=== PATIENT | male | born 1965 | race Caucasian/White ===

== ENCOUNTER 2021-01-17 08:54 | Inpatient (IN) ==
--- NOTE | 2021-01-02 12:26 | Anesthesiology Consultation ---
Date of Service January 02, 2021 Assessment & Plan (1) Encounter for pre-operative examination: Chart Review Chart Review: Acceptable Risk for Surgery (pending preop Covid testing results ) and Patient NOT seen in Pre Admission Testing Per nursing assessment 12/21/2020, patient resides and works in [facility]. Did travel to [place]- stayed at son's house overnight- did not go in public. Returned 12/18/20. Wears mask, uses good hand hygiene and socially distances. No known Covid positive contacts or Covid related symptoms. No known Covid infection in the past 90 days. Spoke to patient- preop Covid testing scheduled 01/12/21= will await results. History Surgery Operation Date: 01/17/21 07:45 Proposed Procedures p Right Total Knee Arthroplasty - Pro Marquez DO Height/Weight Height: 5 ft 8 in Weight: 133.356 kg Allergies Allergy/AdvReac Type Severity Reaction Status Date / Time No Known Allergies Allergy Unknown Verified 12/21/20 07:55 Medications Home Medications Medication Instructions Recorded Confirmed Last Taken Glucosamine Chondroitin 2 cap PO QAM 04/07/19 12/21/20 04/14/19 08:00 Juice Plus 4 cap PO QAM 04/07/19 12/21/20 04/14/19 08:00 aspirin 81 mg PO QAM 04/07/19 12/21/20 04/08/19 08:00 cholecalciferol (vitamin D3) 1,000 unit PO QAM 04/07/19 12/21/20 04/14/19 08:00 [Vitamin D3] fluticasone propionate [Flonase 2 spray INTRANASAL DAILY PRN 04/07/19 12/21/20 Unknown Allergy Relief] lisinopril 10 mg PO QAM 04/07/19 12/21/20 04/14/19 08:00 multivitamin 1 tab PO QAM 04/07/19 12/21/20 04/14/19 08:00 omeprazole 20 mg PO QAM 04/07/19 12/21/20 04/14/19 08:00 rosuvastatin 5 mg PO Q OTHER DAY 04/07/19 12/21/20 04/13/19 08:00 sertraline 100 mg PO QAM 04/07/19 12/21/20 04/14/19 08:00 tramadol 50 mg PO Q8 PRN 04/07/19 12/21/20 Unknown ibuprofen 800 mg PO Q6H PRN 12/21/20 12/21/20 Unknown meloxicam 15 mg PO QAM 12/21/20 12/21/20 Unknown Past Medical History Medical History Anxiety Degenerative disc disease Depression GERD (gastroesophageal reflux disease) History of COVID-19 DX'D 06/24/2020 [facility] BELLEFONTE-TIRED, ACHY, DECREASED TASTE AND SMELL- RECOVERED AT HOME-ALL RESOLVED EXCEPT SMELL STILL DIMINISHED AT PRESENT Hyperlipidemia Hypertension Kidney stones Migraine HX Osteoarthritis Sleep apnea CAN'T TOLERATE CPAP Past Family History Family History Aunt Family history of diabetes mellitus Uncle Family history of diabetes mellitus Grandfather (Maternal) Family history of diabetes mellitus Grandfather (Paternal) Family history of diabetes mellitus Grandmother (Paternal) Family history of diabetes mellitus Grandmother (Maternal) Family history of diabetes mellitus Other No family history of adverse response to anesthesia Past Surgical History Surgical History History of arthroscopy of right knee History of colonoscopy History of cystoscopy History of hand surgery RIGHT-GLASS REMOVAL History of hand surgery LEFT-CYST REMOVAL History of tonsillectomy and adenoidectomy History of tooth extraction Social History Smoking Status: Former smoker Do You Dip or Chew Tobacco: No Smoking End Date: QUIT CIGARS 1.5 YRS AGO Hx Alcohol Use: Yes Alcohol type: beer and hard liquor alcohol intake frequency: a few times a week Hx Substance Use: Yes substance use type: prescription drug Lab Results Anesthesia Preop Results Results Anesthesia Widget: WBC 6.90 K/uL (4.8-10.8) 12/23/20 Hgb 15.1 g/dL (14.0-18.0) 12/23/20 Hct 44.3 % (42-52) 12/23/20 Plt 234 K/uL (130-400) 12/23/20 Na 144 mmol/L (136-145) 12/23/20 K 4.0 mmol/L (3.5-5.1) 12/23/20 Cl 109 mmol/L (98-107) H 12/23/20 CO2 30 mmol/L (21-32) 12/23/20 BUN 18 mg/dl (7-18) 12/23/20 Creat 0.83 mg/dl (0.6-1.4) 12/23/20 Glucose Level 82 mg/dl (70-99) 12/23/20 PT 9.6 Seconds (9.0-12.0) 12/23/20 PTT 23.6 Seconds (21.0-31.0) 12/23/20 INR 0.9 (0.9-1.1) 12/23/20 HA1c 5.6 % (4.5-5.6) 12/23/20 Urine Color Dark Yellow 12/23/20 Urine Appearance Clear (Clear) 12/23/20 Urine pH 5.5 (4.5-7.5) 12/23/20 Urine Specific [place] 1.023 (1.000-1.030) 12/23/20 Urine Protein Negative (Negative) 12/23/20 Urine Glucose (UA) Negative (Negative) 12/23/20 Urine Ketones Negative (Negative) 12/23/20 Urine Blood Negative (Negative) 12/23/20 Urine Nitrite Negative (Negative) 12/23/20 Urine Bilirubin Negative (Negative) 12/23/20 Urine Urobilinogen Negative (Negative) 12/23/20 Urine Leukocyte Esterase Negative (Negative) 12/23/20 Testing Electrocardiogram Date: 12/23/20 NSR with sinus arrhythmia at 74bpm. Chest X-Ray Date: 12/23/20 Findings: + NAD
--- NOTE | 2021-01-15 08:52 | History & Physical Report ---
Date of Service January 17, 2021 Assessment & Plan (1) Degenerative joint disease of knee, right: I have indicated the patient for right total knee replacement. The risks, benefits and complications of surgery were explained to the patient which include but not limited to infection, acute blood loss, DVT/PE, injury to nerves, vessels, bone, soft tissue, arthrofibrosis, chronic pain, failure of the prosthesis, knee dislocation, leg length discrepancy, need for additional surgery, cardiac and pulmonary events and . The patient wished to proceed with surgery and informed consent was obtained at this time. We will plan for ASA BID post-operatively for DVT prophylaxis. Upon discharge the patient will be discharged home with home health services. Appropriate clearances by PCP were obtained. History of Present Illness Chief Complaint: Right knee pain/DJD Primary Care Provider: James Sahrp DO The patient is a 55 year old male who presents with complaints of severe right knee pain and DJD. The patient has failed outpatient conservative treatments to this point which included NSAIDs, IA corticosteroid, CEBALLOS injections, HEP. The patient's pain and limited function have progressed to the point where they severely hinder their activities of daily living and they no longer tolerate exercise programs. They are requesting to proceed with total knee replacement surgery. Allergies Allergy/AdvReac Type Severity Reaction Status Date / Time No Known Allergies Allergy Unknown Verified 01/17/21 09:17 Home Medications Medication Instructions Recorded Confirmed Type Glucosamine Chondroitin 2 cap PO QAM 04/07/19 01/17/21 History Juice Plus 4 cap PO QAM 04/07/19 01/17/21 History aspirin 81 mg PO QAM 04/07/19 01/17/21 History cholecalciferol (vitamin D3) 1,000 unit PO QAM 04/07/19 01/17/21 History [Vitamin D3] fluticasone propionate [Flonase 2 spray INTRANASAL DAILY PRN 04/07/19 01/17/21 History Allergy Relief] lisinopril 10 mg PO QAM 04/07/19 01/17/21 History multivitamin 1 tab PO QAM 04/07/19 01/17/21 History omeprazole 20 mg PO QAM 04/07/19 01/17/21 History rosuvastatin 5 mg PO DAILY 04/07/19 01/17/21 History sertraline 100 mg PO QAM 04/07/19 01/17/21 History tramadol 50 mg PO Q8 PRN 04/07/19 01/17/21 History ibuprofen 800 mg PO Q6H PRN 12/21/20 01/17/21 History meloxicam 15 mg PO QAM 12/21/20 01/17/21 History Past Med/Surg History Medical History Anxiety Degenerative disc disease Depression GERD (gastroesophageal reflux disease) History of COVID-19 DX'D 06/24/2020 [facility] BELLEFONTE-TIRED, ACHY, DECREASED TASTE AND SMELL- RECOVERED AT HOME-ALL RESOLVED EXCEPT SMELL STILL DIMINISHED AT PRESENT Hyperlipidemia Hypertension Kidney stones Migraine HX Osteoarthritis Sleep apnea CAN'T TOLERATE CPAP Surgical History History of arthroscopy of right knee History of colonoscopy History of cystoscopy History of hand surgery RIGHT-GLASS REMOVAL History of hand surgery LEFT-CYST REMOVAL History of tonsillectomy and adenoidectomy History of tooth extraction Family History Aunt Family history of diabetes mellitus Uncle Family history of diabetes mellitus Grandfather (Maternal) Family history of diabetes mellitus Grandfather (Paternal) Family history of diabetes mellitus Grandmother (Paternal) Family history of diabetes mellitus Grandmother (Maternal) Family history of diabetes mellitus Other No family history of adverse response to anesthesia Social History Smoking Status: Former smoker Smoking End Date: QUIT CIGARS 1.5 YRS AGO; Second Hand Exposure: Yes (FATHER SMOKED); Do You Dip or Chew Tobacco: No; Hx Alcohol Use: Yes Alcohol type: beer and hard liquor Hx Substance Use: Yes Preferred Language: Bahamian Communication Ability: Effective Physician Assistant Primary Care Required: No Beliefs That Will Affect Care: None Current Living Situation: Spouse current occupational status: employed current occupation: [employer] Other Information That Helps Us Care for You: No Feels Safe at Home: Yes Safety Concerns: Feels Safe At This Time Assistive Devices: Denture - Upper and Glasses Assistive Devices Comment: PARTIAL UPPER Review of Systems Review of Systems: All systems reviewed & are unremarkable except as noted in HPI & below Constitutional: as per Subjective / HPI Physical Exam Physical Exam: RLE NVSI +EHL/FHL/TA/GS SILT grossly, +2 DP pulse, compartments soft NT, limited painful ROM, 0-115 degrees of flexion, +crepitus Constitutional: WD/WN, vitals as above Eyes: PERRL, conjunctivae normal, anicteric sclerae ENMT: external ear and nose normal, oropharynx normal Neck: trachea midline, no thyromegaly Respiratory: normal respiratory effort, lungs clear to auscultation Cardiovascular: RRR, no murmur, no edema Gastrointestinal (Abdomen): normal bowel sounds, soft, nontender, no hepatosplenomegaly Musculoskeletal: no cyanosis or clubbing, extremities motor strength 5/5 Skin: no rashes, warm and dry Neurologic: patellar DTR's 2+ bilat, sensation intact Psychiatric: A+Ox3, euthymic affect Lymphatic: no cervical or axillary lymphadenopathy Results & Data Results & Data ([facility]) Diagnostic Findings Multiple views of the knee demonstrates severe tricompartmental DJD with complete loss of the medial joint space. +osteophytes, +sclerosis, +subchondral cysts.
[~2021-01-17 08:54] MED LIST: ACETAMINOPHEN 500 MG TAB PO SCH; BUPIVACAINE 0.25% 30 ML VIAL ONE; BUPIVACAINE 0.5 % 5 MG/1 ML PF 10ML VIAL ONE; CeleBREX 200 MG CAP PO SCH; FAMOTIDINE 20 MG TAB PO SCH; GABAPENTIN 600 MG DOSE PO SCH; LR 500ML BOLUS, THEN 15ML/HR IV SCH; METOCLOPRAMIDE HCL 10 MG TABLET PO SCH; ROPIVACAINE 0.5% HCL/PF 150 MG, BUPIVACAINE 0.75% MPF 20 ML, EPINEPHrine 30MG/30ML (OR ... INSTIL SCH; Scopolamine 1 MG TDSY TD SCH; TRANEXAMIC ACID 1,000 MG **IV Intra-op IV SCH; TRANEXAMIC ACID 1,000 MG **IV Pre-op IV SCH; dexAMETHasone 4 MG TAB PO SCH
[2021-01-17] MEDS ORDERED: fentaNYL citrate 100 MCG/2 ML VIAL IV PRN (10:52)
[2021-01-17] MEDS ORDERED: ONDANSETRON INJ 2 MG/ML 2 ML VIAL IV PRN ×2 (10:52→15:37)
[2021-01-17] MEDS ORDERED: ePHEDrine sulfate 50 MG/ML AMP IV PRN (10:52)
[2021-01-17] MEDS ORDERED: ATROPINE SULFATE 0.1 MG/ML 10ML SYR IV PRN (10:52)
[2021-01-17] MEDS ORDERED: MIDAZOLAM HCL 1 MG/ML 2ML VIAL ONE (10:55)
--- NOTE | 2021-01-17 11:53 | History & Physical Bridge Note ---
Date of Service January 17, 2021 History & Physical Bridge Note I have examined the patient, reviewed the History & Physical and in the interval since the performance of the History & Physical I have noted the following changes of clinical significance: no changes noted
[2021-01-17] MEDS ORDERED: ORTHO JOINT ANESTHETIC ONE (12:08)
[2021-01-17] MEDS ORDERED: KETAMINE 50 MG/5 ML SYRINGE ONE (12:50)
[2021-01-17] MEDS ORDERED: LIDOCAINE 2% 2 ML VIAL/AMP(20MG/ML) INFIL ONE (13:14)
[2021-01-17] MEDS ORDERED: ONDANSETRON INJ 2 MG/ML 2 ML VIAL ONE (13:14)
[2021-01-17] MEDS ORDERED: PROPOFOL IV EMULSION 10 MG/ML 20 ML VIAL IV ONE (13:14)
--- NOTE | 2021-01-17 14:18 | Post Operative Brief Note ---
Immediate Post Op Note v1 Date of Surgery January 17, 2021 Pre & Post Diagnosis Operation Date: 01/17/21 11:35 Pre-Op Diagnosis: Right Knee Degenerative Joint Disease Post-Op Diagnosis: Right Knee Degenerative Joint Disease I identified the patient and participated in the time-out.: Yes Procedure Operation Date: 01/17/21 11:35 Actual Procedures p Right Total Knee Arthroplasty(Right) - Pro Marquez DO Surgeon Pro Marquez DO [employer] Phong Raphael Estimated Blood Loss 75 Findings Consistent with Post-Op Diagnosis Fluids See anesthesia report Specimens Proximal tibia and distal femur bone fragment Anesthesia Type Spinal MAC Complications none Disposition Disposition: Recovery Room Overlapping Procedure I was present for: the critical portions of procedure. I was immediately available: during the entire case. Back up surgeon: was not required during procedure.
--- NOTE | 2021-01-17 14:20 | Operative Report ---
Post Operative Report Pre & Post Diagnosis Operation Date: 01/17/21 11:35 Pre-Op Diagnosis: Right Knee Degenerative Joint Disease Post-Op Diagnosis: Right Knee Degenerative Joint Disease I identified the patient and participated in the time-out.: Yes Procedure Operation Date: 01/17/21 11:35 Actual Procedures p Right Total Knee Arthroplasty(Right) - Pro Marquez DO Surgeon Pro Marquez, Top Ironer Phong Raphael Estimated Blood Loss 75 Findings Consistent with Post-Op Diagnosis Fluids See anesthesia report Specimens Proximal tibia and distal femur bone fragment Anesthesia Type Spinal MAC Complications none Disposition Disposition: Recovery Room Indications The patient is a 55-year-old male presents with long history of severe right knee tricompartmental DJD and failed outpatient conservative treatments including NSAIDs, bracing, injections and home walking/exercise program. The patient's symptoms have progressed to the point where it has been difficult to p erform normal activities of daily living. I have indicated the patient for a right total knee arthroplasty, the risks and benefits and complications of the procedure include but are not limited to infection bleeding damage to bone, nerves, vessels, surrounding soft tissue, blood clots, loss of function, leg length discrepancy, dislocation, failure of the components, need for additional surgery and . The patient wished to proceed with surgery at this time and informed consent was obtained. Appropriate clearances were obtained. Description of Procedure COMPONENTS USED: Maricruz persona knee system: Femur size 9 standard, Tibia size H, 30mm tibial stem extension, Tibial articulating surface 12 PS, Patella 35 mm Following induction of spinal anesthesia, a tourniquet was applied to the proximal aspect of the thigh and the patient's right leg was prepped and draped in the usual sterile manner. A timeout was performed, patient identified and site frank confirmed. Appropriate pre-operative IV antibiotics were given. The limb was exsanguinated with an Esmarch bandage and tourniquet was inflated to 300 mmHg. A longitudinal midline incision was made over the anterior knee. Subcutaneous tissue was sharply dissected down to fascia. Electrocautery was used for hemostasis. Next a parapatellar arthrotomy was performed. Patella was everted and the knee was flexed. A Dudley retractor was used to expose the synovium above on the anterior aspect of the femur and removed down to bone. Next, the anterior fat pad was removed to aid in visualization. The medial face of the tibia was cleared of soft tissue first with a Bovie and a montesinos elevator. This tissue was retracted posteriorly using a blunt Hohmann. Next, the extra-medullary tibial cutting guide was placed to the anterior aspect of the tibia. The tibia resection level was set taking 2mm from the defective tibial condyle. Resection depth was once again confirmed with atilio wing. The medial and lateral collateral ligament was protected with two Hohmann retractors. The tibia guide was removed and proximal tibial bone fragment removed utilizing straight osteotome, electrocautery and Saida. Next, the distal femur intramedullary canal was accessed utilizing the step drill. The intramedullary distal femur cutting guide was placed into the canal and pinned into place. The distal femur was cut on the 5 degree setting. Next the cutting guide was removed and the femur was sized. Care was taken to ensure appropriate fence installer all rotation and 3 degree holes were drilled. A size 9 4-in-1 cutting block was placed on the distal end of the femur and secured into place with two short headed screws. Two bent Hohmann retractors were placed to protect the medial and lateral collateral ligaments. The oscillating saw was used to cut anterior, posterior, anterior chamfer and posterior chamfer. The four and one cutting block was removed and bone fragments excised. Laminar wrist liner was placed laterally and the ACL and PCL were removed followed by the medial meniscus and posterior medial osteophytes. Aquamantys was utilized for any posterior medial bleeders and Orthomix injected into the posterior medial capsule. A laminar wrist liner was then placed in the medial compartment and the lateral meniscus and posterior osteophytes were removed. Aquamantys was utilized for any posterior lateral bleeders and Orthomix injected into the posterior lateral capsule. Next, drop jing and spacer block were placed with the leg in flexion and extension to assess alignment and flexion/extension gaps. Next, the proximal tibia was assessed and two bent Hohmans were placed medial and lateral to aid in visualization. The appropriate tibia size and rotation was selected and a size H tibial plate was pinned into place with appropriate rotation. Preparation of the tibia was completed utilizing the matching tibial drill and broach. I then turned my attention back to the distal femur in a trial femoral component was impacted into place. Appropriate femoral width was assessed and selected. Next the femur PS box cut guide was placed and cut made with the reciprocal saw and the PS box provisional placed. A trial size 12 PS tibia articular tray was placed and varus-valgus balance assessed in 0 degrees of extension and 30, 60 and 90 degrees of flexion. A final tibial articular surface size 12 PS was chosen. Assess was gained to the patella and caliper utilized to measure width. The patella reamer was utilized and remaining bone removed with oscillating saw. A size 35 mm patella button was selected and the patella pegs drilled. Trial patella button was placed and tracking was assessed. The knee was found to be well balanced, well aligned with excellent patella tracking. The trials were removed and final components were obtained and assembled. The knee was irrigated copiously with sterile saline solution mixed with bacitracin. Access to the proximal tibia was once again obtained utilizing to the Hohmans and the proximal tibia and distal femur were dried with lap sponges. The final components were cemented into place and all excess cement was removed. A trial tibial articular surface was placed while cemented hardened. Knee stability was once again assessed and the final component inserted. A Betadine soak was performed. After 3 minutes, the knee was once more irrigated with copious sterile saline solution with bacitracin. The knee was injected with the remaining Orthomix which includes a combination of Ropivicaine 0.5% 150mg, Bupivicaine 0.5%/Epinephrine 1:200,000 30ml, Toradol 30mg, Dexamethasone 4mg, Ketamine 10mg, Clonidine 100mcg and NSS 30ml solution. The capsulotomy was closed with #1 Vicryl followed by subcutaneous closure with 2-0 Vicryl suture and a 3-0 V-lock suture. Skin closure was performed using Prineo dressing followed by Telfa, 4 x 4s and michelle wrap. Tourniquet was deflated at 101 minutes. The patient tolerated the procedure well and was taken to the PACU in stable condition. Due to the complex nature of the procedure, the entire surgery was performed with the operational assistance of Phong Raphael PA-C. The personnel assistant, under direct supervision, was involved in the actual performance of all aspects of the surgical procedure including patient positioning, hemostasis, tissue retraction, instrument management and wound closure. I attest to the content of the Intraoperative Record and any orders documented therein. Any exceptions are noted below.
--- NOTE | 2021-01-17 15:18 | XRay Report ---
XR knee RT 1 or 2V routine CLINICAL HISTORY: Postoperative evaluation. COMPARISON: Right knee radiographs December 02, 2014. FINDINGS: Alignment of the total right knee arthroplasty is anatomic. There is no periprosthetic fra cture or unexpected radiopaque foreign body. There are skin mercedes. IMPRESSION: Expected findings following total right knee arthroplasty. ACT 112: Negative or not required by law. Electronically signed by: Otto Su M.D. 01/17/2021 3:16 PM
--- NOTE | 2021-01-17 15:25 | Anesthesiology Progress Note ---
Date of Service January 17, 2021 Anesthesia Post Procedure Vital Signs Vital Signs: Temp Pulse Pulse Resp BP BP Pulse Ox 01/17/21 15:15 36.3 C L 74 16 121/87 96 01/17/21 15:05 90 16 124/86 96 01/17/21 14:55 84 16 133/93 96 01/17/21 14:48 36.1 C L 94 H 20 136/88 98 01/17/21 09:39 37 C 91 H 22 166/90 H 98 Pain Intensity Right Knee: Pain Intensity: 4 Transfer of Care Handoff Completed per policy Notes Mental Status: alert / awake / arousable and participated in evaluation Patient Amnestic to Procedure: Yes Nausea / Vomiting: adequately controlled Pain: adequately controlled Airway Patency, RR, SpO2: stable & adequate BP & HR: stable & adequate Hydration State: stable & adequate Neuraxial Anesthesia: was administered and sensory block is resolving Anesthetic Complications: no major complications apparent and Pt Satisfied with anesthetic care
[2021-01-17] MEDS ORDERED: MAGNESIUM HYDROXIDE SUSP 30 ML UDC PO PRN (15:37)
[2021-01-17] MEDS ORDERED: diphenhydrAMINE Capsule 25 MG CAP PO PRN (15:37)
[2021-01-17] MEDS ORDERED: METOCLOPRAMIDE HCL INJ 5 MG/ML 2 ML VIAL IV PRN (15:37)
[2021-01-17] MEDS ORDERED: bisacodyL 10 MG SUPP PR PRN (15:37)
[2021-01-17] MEDS ORDERED: ceFAZolin 2000MG 2,000 MG/15 ML SYR IV SCH (15:37)
[2021-01-17] MEDS ORDERED: NALOXONE HCL 0.4 MG/1 ML VIAL/CARP IV PRN (15:37)
[2021-01-17] MEDS ORDERED: HYDROmorphone INJ 0.5 MG/0.5 ML SYR IV PRN (15:37)
[2021-01-17] MEDS: Scopolamine CHECK PATCH PLACEMENT SCH ×2 (16:45→23:55)
[2021-01-17] MEDS: SODIUM CHLORIDE 0.9% 1000ML 1,000 ML IV SCH (17:34)
[2021-01-17] MEDS: KETOROLAC TROMETHAMINE 15 MG/ML VIAL IV SCH ×2 (17:35→23:56)
--- NOTE | 2021-01-17 19:57 | Orthopedic Progress Note ---
Date of Service January 17, 2021 Assessment & Plan (1) Degenerative joint disease of knee, right: s/p right TKA -ancef x 24 -DVT ppx: SCDs, TEDs, ASA BID -WBAT RLE -PT/OT -PO XR demonstrates a well aligned well fixed prothesis without fracture/dislocation -am labs DC planning Admission and Anticipated Discharge Date Admission Date: January 17, 2021 Subjective Post Operative Progress Note Patient seen in the PACU, comfortable, denies complaints, pain well controlled, no acute issues. Review of Systems Review of Systems: All systems reviewed & are unremarkable except as noted in HPI & below Constitutional: as per Subjective / HPI Physical Exam Physical Exam: Limited PE secondary to spinal anesthesia, +2 DP pulse, compartments soft NT, dressing CDI. Constitutional: WD/WN, vitals as above Results & Data ([facility]) Vital Signs (Past 12 Hours) Vital Signs Temp Pulse Pulse Resp BP BP Pulse Ox 01/17/21 17:36 61 18 131/84 94 01/17/21 16:35 73 18 124/80 96 01/17/21 15:30 36.5 C 89 18 143/90 H 97 01/17/21 15:15 36.3 C L 74 16 121/87 96 01/17/21 15:05 90 16 124/86 96 01/17/21 14:55 84 16 133/93 96 01/17/21 14:48 36.1 C L 94 H 20 136/88 98 01/17/21 09:39 37 C 91 H 22 166/90 H 98
[2021-01-17] MEDS: ceFAZolin 3,000 MG in DEXTROSE 5% 50 ML IV SCH (20:17)
[2021-01-17] MEDS: oxyCODONE HCL IR 5 MG TAB (IMMEDIATE RELEASE) PO PRN ×2 (20:31→21:49)
[2021-01-17] MEDS ORDERED: SENNA 8.6 MG TAB PO SCH (21:00)
[2021-01-17] MEDS: ACETAMINOPHEN 500 MG TAB PO SCH (21:49)
[2021-01-17] MEDS: DOCUSATE SODIUM 100 MG CAP PO SCH (21:49)
[2021-01-18] MEDS: ceFAZolin 3,000 MG in DEXTROSE 5% 50 ML IV SCH (02:57)
[2021-01-18] MEDS: SODIUM CHLORIDE 0.9% 1000ML 1,000 ML IV SCH (04:41)
[2021-01-18] MEDS: KETOROLAC TROMETHAMINE 15 MG/ML VIAL IV SCH ×2 (05:35→11:33)
[2021-01-18] MEDS: ACETAMINOPHEN 500 MG TAB PO SCH (05:35)
[2021-01-18 07:40] LABS: Hematocrit (blood only) 35.9 % (42-52); Hemoglobin 12.3 g/dL (14.0-18.0); Mean Corpuscular Hemoglobin 30.6 pg (25-34); Mean Corpuscular Hgb Conc 34.3 g/dL (32-36); Mean Corpuscular Volume 89.3 fL (80-100); Mean Platelet Volume 10.2 fL (7.4-10.4); Platelet Count 183 K/uL (130-400); RDW Coefficient of Variation 12.7 % (11.5-14.5); RDW Standard Deviation 41.9 fL (36.4-46.3); Red Blood Count 4.02 M/uL (4.7-6.1); White Blood Count 12.16 K/uL (4.8-10.8)
[2021-01-18 08:24] LABS: BUN Creatinine Ratio 22.9 (10-20); Calcium 8.1 mg/dl (8.5-10.1); Creatinine Clr Calc Pharmacy 119.4 ml/min; Est GFR (African American) 105.2 ml/min; Est GFR (Non-African American) 90.8 ml/min; Potassium 4.1 mmol/L (3.5-5.1)
[2021-01-18] MEDS: DOCUSATE SODIUM 100 MG CAP PO SCH (08:55)
[2021-01-18] MEDS: Scopolamine CHECK PATCH PLACEMENT SCH (08:56)
[2021-01-18] MEDS: oxyCODONE HCL IR 5 MG TAB (IMMEDIATE RELEASE) PO PRN (08:57)
[2021-01-18] MEDS ORDERED: SERTRALINE HCL 100 MG TABLET PO SCH (09:00)
[2021-01-18] MEDS ORDERED: ROSUVASTATIN CALCIUM 5 MG TAB PO SCH (09:00)
[2021-01-18] MEDS ORDERED: MULTIVITAMIN TAB PO SCH (09:00)
[2021-01-18] MEDS ORDERED: PANTOprazole 40 MG TAB PO SCH (09:00)
[2021-01-18] MEDS ORDERED: lisinopril 10 MG TAB PO SCH (09:00)
[2021-01-18] MEDS ORDERED: ASPIRIN 325 MG ECTAB PO SCH (09:00)
[2021-01-18 10:55] VITALS: BP 152/84; PULSE 76; TEMP 99; O2SAT 91
--- NOTE | 2021-01-18 10:59 | Orthopedic Progress Note ---
Date of Service January 18, 2021 Assessment & Plan (1) Degenerative joint disease of knee, right: s/p right TKA POD#1 -ancef x 24 -DVT ppx: SCDs, TEDs, ASA BID -WBAT RLE -PT/OT -PO XR demonstrates a well aligned well fixed prothesis without fracture/dislocation -am labs - as above, hgb 12.3 DC planning - home with Admission and Anticipated Discharge Date Admission Date: January 17, 2021 Subjective Post Operative Progress Note Patient seen sitting up in bed, comfortable, denies complaints, pain well controlled, no acute issues. Denies F/C/N/V/SOB/CP. Review of Systems Review of Systems: All systems reviewed & are unremarkable except as noted in HPI & below Constitutional: as per Subjective / HPI Physical Exam Physical Exam: RLE NVSI +EHL/FHL/TA/GS SILT grossly, +2 DP pulse, compartments soft NT, dressing cdi. Constitutional: WD/WN, vitals as above Results & Data ([facility]) Vital Signs (Past 12 Hours) Vital Signs Temp Pulse Resp BP Pulse Ox 01/18/21 10:54 37.2 C 76 16 152/84 H 91 01/18/21 07:00 36.6 C 77 16 125/73 93 01/18/21 03:07 36.5 C 86 20 130/78 95 Laboratory Results 01/18/21 01/18/21 Range/Units 07:07 07:07 WBC 12.16 H (4.8-10.8) K/uL RBC 4.02 L (4.7-6.1) M/uL Hgb 12.3 L (14.0-18.0) g/dL Hct 35.9 L (42-52) % MCV 89.3 (80-100) fL MCH 30.6 (25-34) pg MCHC 34.3 (32-36) g/dL RDW Std Deviation 41.9 (36.4-46.3) fL RDW Coeff of Cindy 12.7 (11.5-14.5) % Plt Count 183 (130-400) K/uL MPV 10.2 (7.4-10.4) fL Sodium 139 (136-145) mmol/L Potassium 4.1 (3.5-5.1) mmol/L Chloride 107 (98-107) mmol/L Carbon Dioxide 24 (21-32) mmol/L Anion Gap 8.0 (3-11) BUN 21 H (7-18) mg/dl Creatinine 0.93 (0.6-1.4) mg/dl Est Cr Clr Drug Dosing 119.4 ml/min Est GFR ( Amer) 105.2 ml/min Est GFR (Non-Af Amer) 90.8 ml/min BUN/Creatinine Ratio 22.9 H (10-20) Glucose 147 H (70-99) mg/dl Calcium 8.1 L (8.5-10.1) mg/dl Specimen Hemolysis
--- NOTE | 2021-01-18 16:38 | Discharge Summary ---
Date of Service January 18, 2021 Admission HPI Per Admitting Provider The patient is a 55 year old male who presents with complaints of severe right knee pain and DJD. The patient has failed outpatient conservative treatments to this point which included NSAIDs, IA corticosteroid, CEBALLOS injections, HEP. The patient's pain and limited function have progressed to the point where they severely hinder their activities of daily living and they no longer tolerate exercise programs. They are requesting to proceed with total knee replacement surgery. Principal Diagnosis Right total knee replacement Discharge Exam RLE NVSI +EHL/FHL/TA/GS SILT grossly, +2 DP pulse, compartments soft NT, dressing cdi. Constitutional WD/WN, vitals as above Discharge Data Allergies Allergy/AdvReac Type Severity Reaction Status Date / Time No Known Allergies Allergy Unknown Verified 01/17/21 09:17 Procedures Performed Operation Date: 01/17/21 11:35 Actual Procedures p Right Total Knee Arthroplasty(Right) - Pro Marquez DO Ordered Studies 01/17/21 05:00 US - OR guided needle placemen Routine Hospital Course (1) Degenerative joint disease of knee, right: The patient is a 55 -year-old male who presents with long standing history of severe right knee DJD and failed outpatient conservative treatments. The patient's symptoms have progressed to the point where it has been difficult to perform even normal activities of daily living. I indicated the patient for a right total knee arthroplasty, the risks, benefits and complications of the procedure include but not limited to infection, bleeding, damage to bone, nerves, vessels, surrounding soft tissue, may develop blood clots, loss of function, leg length discrepancy, dislocation, failure of the components, loosening of the components, the need for additional surgery and . The patient wished to proceed with surgery at this time and informed consent was obtained. Hospital Course: On 01/17/21 the patient was taken to the operating room, adequate anesthesia administered and underwent a right total knee arthroplasty. The patient tolerated the procedure well and was taken to the PACU in stable condition. Post-operatively the patient was started on a DVT ppx medication and given appro priate IV antibiotics. Consults were placed to physical therapy, occupational therapy and case management. On POD#1, the patient did well overnight and their pain was well controlled. Labs were drawn and the Hgb was 12.3. The patient progressed well with PT. Dressings were changed at this time and the incision was clean, dry and intact. The patients hospital stay was relatively uneventful and they were deemed stable by the orthopedic team and consultants to be discharged home with HH on 01/18/21. Discharge Instructions: Upon discharge the patient may weight bear as tolerates through their operative extremity. They were instructed to keep the incision clean and dry at all times. The patient may shower but should not submerge the incision, avoid bathing, pools and hot tubs. The patient was given a script for pain medication and should take as instructed. The patient was given a script for DVT ppx ASA BID and should take as directed. The patient was instructed to not drive or travel for long distances until cleared to do so. If the patient develops any symptoms of fevers, chills, nausea, vomiting, increased redness, swelling, pain or drainage from the surgical site, they should notify the office and/or proceed to the nearest emergency room. The patient should follow up in 10-14 days after surgery for their routine post-operative follow-up appointment and should call the office, to confirm the date and time. s/p right TKA POD#1 -ancef x 24 -DVT ppx: SCDs, TEDs, ASA BID -WBAT RLE -PT/OT -PO XR demonstrates a well aligned well fixed prothesis without fracture/dislocation -am labs - as above, hgb 12.3 DC planning - home with Total Time Total Time Spent Total Time Spent (In Minutes): 30 Discharge Plan Discharge Items Patient Disposition: Home - Home Health Services Reason For Visit: Right Knee Degenerative Joint Disease Discharge Diagnosis: Right total knee replacement Condition on Discharge: Good Activity: Per Instructions section Lifting: Wait until after follow-up appointment Bathing: Keep incision dry Bathing Comment: No bathing, pools or hot tubs. Sexual Activity: Wait until after follow-up appointment Exercise/Sports: Wait until after follow-up appointment Driving/Machine Use: No driving. Weightbearing: Full weightbearing Non-emergency contact: Primary Care Provider and Surgeon Call non-emergency contact if: you have any medication questions, your symptoms worsen, your pain is not controlled, your pain is worsening, your pain is unusual for you, your pain is concerning for you, you have a fever, your temperature is above 101, your wound has increased redness, your wound has increased drainage and your wound pain has increased Follow-up/Referrals: James Sharp, [Primary Care Provider] - Diet: Regular Addtl Attending Provider Instructions: ACTIVITY RECOMMENDATIONS: SELF CARE INSTRUCTIONS AFTER TOTAL KNEE REPLACEMENT A. You may need to continue a physical therapy program after discharge from the hospital. There are several options available to you. Your doctor will assist you in selecting the best one for you. 1. An out-patient facility 2 to 3 times a week for therapy or home therapy. 2. Continue working on all exercises taught to you in the hospital. Your goals should be to increase bending of your knee to 90 degrees and beyond and to fully straighten your knee. B. You may progress at your own pace from walking with a walker or crutches to a cane; then to no assistive devices. C. Make walking a part of your daily routine. Be up as much as comfortable with rest periods throughout the day. Rest with leg elevation is very important. Use the ice wrap frequently for the first 3-4 weeks. D. There are no restrictions on activities. You may ride in a car, shop, participate in [employer] and all social activities. E. Wear the long elastic stockings (ENMANUEL hose) 20 hours a day for 2 weeks after surgery. They can be removed several times a day for laundering and for a bath. F. You may shower, no tub baths until cleared by your doctor. SPECIAL CARE INSTRUCTIONS: VERY IMPORTANT TO READ AND REVIEW A. There are a few signs you need to watch for after you are home. Call [facility] [place] if you notice any of the followin. Increased severe knee pain. Some pain is expected especially when you exercise. 2. Increased swelling in your leg or knee; pain or swelling of the calf muscle in either lower leg. 3. Any fluid drainage from the incision. 4. Shortness of breath or chest pain. B. Please call [facility] [place] at if you have any concerns or questions about your operation or recovery. The doctor or his nurse will return your call promptly. C. You must take antibiotics before dental work, bladder, bowel or other surgery. Your doctor will provide you with a permanent care to carry describing this precaution. IMPORTANT: * REMEMBER TO TAKE ASPIRIN, 325 MG, TWICE DAILY FOR 4 WEEKS UNLESS OTHERWISE DIRECTED. THIS IS YOUR BLOOD THINNER. * HIGH RISK PATIENTS MAY BE PRESCRIBED A STRONGER BLOOD THINNER. THIS WILL BE PROVIDED AT DISCHARGE. * CALL IF INCREASED PAIN, REDNESS, DRAINAGE OR FEVER GREATER THAT 101. * WEAR ENMANUEL HOSE 20 HOURS PER DAY FOR 2 WEEKS. *NILAY incisional vac is a special dressing covering your incision. This dressing provides a sterile dry environment while you are healing. The dressing is to be left in place for 7 days post-operatively. Your home nurse or surgeon will remove. If you develop any redness or blisters or have any questions notify your surgeon immediately. FOLLOW UP VISIT: If appointment is not already scheduled: Please call [facility] [place] to make a follow-up appointment for 2 weeks after your surgery at . Pending Studies at Discharge: No Stand-Alone Forms: My [facility], Smoking Cessation Medications and DC Order Prescriptions: New celecoxib [Celebrex] 200 mg Capsule 200 mg PO BID PRN (Reason: pain/inflammation) Qty: 30 RF: 0 acetaminophen 500 mg Tablet 1,000 mg PO Q8 PRN (Reason: pain/fevers) Qty: 90 RF: 0 aspirin [Ecotrin] 325 mg Tablet,Delayed Release (Dr/Ec) 325 mg PO BID Qty: 56 RF: 0 oxycodone 5 mg Tablet 5 mg PO Q6H MDD 4 PRN (Reason: pain) Qty: 30 RF: 0 sennosides [Senokot] 8.6 mg Tablet 17.2 mg PO HS PRN (Reason: constipation) Qty: 30 RF: 0 Continued multivitamin Tablet 1 tab PO QAM RF: 0 sertraline 100 mg Tablet 100 mg PO QAM RF: 0 lisinopril 10 mg Tablet 10 mg PO QAM RF: 0 fluticasone propionate [Flonase Allergy Relief] 50 mcg/actuation [place],Suspension 2 spray INTRANASAL DAILY PRN (Reason: Allergy Symptoms) RF: 0 rosuvastatin 5 mg Tablet 5 mg PO DAILY RF: 0 cholecalciferol (vitamin D3) [Vitamin D3] 1,000 unit (25 mcg) Tablet 1,000 unit PO QAM RF: 0 omeprazole 20 mg Tablet,Delayed Release (Dr/Ec) 20 mg PO QAM RF: 0 Glucosamine Chondroitin 550-30-1 mg Capsule 2 cap PO QAM RF: 0 Juice Plus 4 cap PO QAM RF: 0 Discontinued aspirin 81 mg Tablet,Delayed Release (Dr/Ec) 81 mg PO QAM RF: 0 tramadol 50 mg Tablet 50 mg PO Q8 PRN (Reason: Pain) RF: 0 ibuprofen 200 mg Tablet 800 mg PO Q6H PRN (Reason: Pain) RF: 0 meloxicam 15 mg Tablet 15 mg PO QAM RF: 0 Discharge Orders: Discharge Order (Routine); Ordered 01/18/21 Ordered By: Phong Espinal/Other Patient Handouts: What Is Osteoarthritis? Admission Data Admit Date/Time: 01/17/21 14:52 Attending Provider: Pro Marquez Admit Provider: Pro Marquez Primary Care Provider: James Sharp Other Providers: [facility], [facility],Home Health Other Interventions: Discharge Summary Assessment (RN) Last Done: 01/18/21 11:48
[2021-01-18] MEDS ORDERED: CeleBREX 200 MG CAP PO SCH (21:00)
== END 2021-01-18 13:11 | disposition home health service (06) | DRG 470 ==
LOC: ASU 08:54 → 3E 08:54 → OBSVTOIN 14:52